=== PATIENT | male | born 1970 | race Caucasian/White ===

== ENCOUNTER 2018-10-06 21:33 | Inpatient (IN) | payer OTHER ==
[~2018-10-06] VITALS: Ht 167.6 cm; Wt 126.7 kg
[2018-10-06 21:41] VITALS: Ht 167.6 cm; Wt 126.7 kg
[2018-10-06] MEDS ORDERED: LANTUS SOLOS100 U/M1 SQ (22:15)
[2018-10-06 22:16] LABS: BASOPHIL % 0.4 % (0-2); RED CELL DISTRIBUTION WIDTH 14.1 % (11.5-14.5)
[2018-10-06] MEDS ORDERED: HUMALOG100 UNIT/1 SQ (22:17)
[2018-10-06] MEDS ORDERED: JANUVIA100 M1 PO (22:18)
[2018-10-06] MEDS ORDERED: ZOLOFT100 MG PO (22:18)
[2018-10-06 22:19] LABS: PLATELET COUNT 548 x10^3mcL (130-400)
[2018-10-06 22:25] LABS: CALCIUM 8.3 mg/dL (8.5-10.1); CARBON DIOXIDE 28.1 mmol/L (21-32); CHLORIDE SERUM 102 mmol/L (98-107); CREATININE SERUM 0.7 mg/dL (0.7-1.3); GFR1 > 60 mL/min; GLUCOSE SERUM 232 mg/dL (74-106); POTASSIUM SERUM 3.5 mmol/L (3.5-5.1); SODIUM SERUM 134 mmol/L (136-145)
[2018-10-06 22:30] LABS: ALKALINE PHOSPHATASE 219 U/L (46-116); ALT/SGPT 32 U/L (16-63); AST/SGOT 24 U/L (15-37); BILIRUBIN TOTAL 0.36 mg/dL (0.20-1.00); TOTAL PROTEIN, SERUM 6.6 g/dL (6.4-8.2)
[2018-10-06 22:32] LABS: ALBUMIN 1.5 g/dL (3.4-5.0)
[2018-10-07 00:03] LABS: microscopic required? YES; urine erythrocyte 3+ (NEGATIVE)
[2018-10-07] MEDS ORDERED: AMBIEN10 MG (01:11)
[2018-10-07] MEDS ORDERED: PREDNISONE20 MG (01:12)
[2018-10-07] MEDS ORDERED: ROC1I (01:12)
[2018-10-07] MEDS ORDERED: ROC1I IM (01:13)
[2018-10-07 01:42] LABS: CHOLESTEROL/HDL RATIO 3.2; MAGNESIUM 1.6 mg/dL (1.8-2.4); PHOSPHOROUS 3.4 mg/dL (2.5-4.9)
[2018-10-07 03:14] VITALS: BP 161/78
[2018-10-07 05:34] VITALS: BP 136/64
[2018-10-07 05:55] LABS: BASOPHIL % 0.4 % (0-2); RED CELL DISTRIBUTION WIDTH 14.4 % (11.5-14.5)
[2018-10-07 06:01] LABS: PLATELET COUNT 525 x10^3mcL (130-400)
[2018-10-07 06:11] LABS: CALCIUM 8.1 mg/dL (8.5-10.1); CARBON DIOXIDE 26.7 mmol/L (21-32); CHLORIDE SERUM 103 mmol/L (98-107); CREATININE SERUM 0.7 mg/dL (0.7-1.3); GFR1 > 60 mL/min; GLUCOSE SERUM 164 mg/dL (74-106); MAGNESIUM 1.6 mg/dL (1.8-2.4); PHOSPHOROUS 3.5 mg/dL (2.5-4.9); POTASSIUM SERUM 3.6 mmol/L (3.5-5.1); SODIUM SERUM 137 mmol/L (136-145)
[2018-10-07 09:32] VITALS: BP 140/80
[2018-10-07 11:44] LABS: AMPHETAMINE QUAL UR NONE DETECTED (See below)
[2018-10-07 12:18] VITALS: BP 146/70
[2018-10-07 15:24] VITALS: BP 146/70
== END 2018-10-07 16:00 | disposition home or self-care (01) | DRG 205 ==
LOC: ED 21:33 → DU 10-07 01:00
PROVIDERS: Emergency Medicine; ADMIT Family Medicine
DX: M94.0 Chondrocostal junction syndrome [Tietze] (principal); N17.0 Acute kidney failure with tubular necrosis; E43 Unspecified severe protein-calorie malnutrition; L03.115 Cellulitis of right lower limb; Z68.42 Body mass index [BMI] 45.0-49.9, adult; E11.9 Type 2 diabetes mellitus without complications; D63.8 Anemia in other chronic diseases classified elsewhere; E66.01 Morbid (severe) obesity due to excess calories; E83.42 Hypomagnesemia; E11.65 Type 2 diabetes mellitus with hyperglycemia
CPT/HCPCS: 82962; 83880; 85378; J0696; J1642; J1644; J7030; Q0092; Q9967